=== PATIENT | female | born 1955 | race Two or more races ===

== ENCOUNTER → 2017-02-28 | Outpatient (CLI) | payer BC ==
--- NOTE | 2017-02-28 18:20 | KCIC ---
Bilateral digital screening mammograms: Reason for examination: Routine screening. Comparison is made to previous study dated 02/22/2014. The skin and nipples show no abnormalities. No abnormal axillary lymph nodes are seen. The breast parenchyma is heterogeneously dense. (Breast density: Category C.) There are small densities in the upper outer quadrants consistent with intramammary lymph nodes bilaterally. There is however a new nodular density seen posteriorly and inferiorly in the right breast on oblique view measuring approximately 7.6 mm in size. Further evaluation with additional views and ultrasound is recommended. There are no other dominant masses, suspicious calcifications or architectural distortion. Impression: 7.6 mm nodule seen posterior inferiorly in the right breast on oblique view only. Recommend further evaluation with additional views and ultrasound. Your patient's mammogram demonstrates that she has dense breast tissue (breast density category C or D), which could hide abnormalities, and if she has other risk factors for breast cancer that have been identified, she might benefit from supplemental screening tests that may be suggested by you as her ordering physician. Dense breast tissue, in and of itself, is a relatively common condition. Therefore, this information is not provided to cause undue concern, but rather to raise your awareness and to promote discussion with your patient regarding the presence of other risk factors, in addition to dense breast tissue. Your patient's mammography results will be sent to her. BI-RAD Category 0: Incomplete. Additional imaging is recommended. "Our facility is accredited by the [employer] Mammography [employer]." This patient's information has been entered into a reminder system for the patient to be notified with the results of her examination and a target date for the next mammogram. Electronically signed by: Petra Schafer MD (02/28/2017 6:16 PM) [facility]
== END | disposition home or self-care (01) ==
LOC: KCIC MAMMO 15:27
PROVIDERS: ATTEND Family Medicine
DX: Z12.31 Encounter for screening mammogram for malignant neoplasm of breast (principal)
CPT/HCPCS: G0202; 77067

== ENCOUNTER → 2017-03-09 | Outpatient (CLI) | payer BC ==
--- NOTE | 2017-03-09 17:02 | KCIC ---
Diagnostic digital mammograms right breast: Reason for examination: Nodule on screening mammogram. Comparison is made to previous examination dated 02/28/2017. Additional lateral and oblique views were obtained of the right breast with markers over moles and skin tags in the inframammary fold region and upper abdomen just beneath the inframammary fold. The nodule seen on screening examination appears to correspond with the skin tag on the upper abdominal wall. No lesions are seen within the breast parenchyma. IMPRESSION: Skin tag just beneath the inframammary fold appears corresponding with the area of mammographic concern. No suspicious abnormalities in the right breast. Recommend routine mammographic follow-up. BI-RADS Category 2: Benign. "Our facility is accredited by the [employer] Mammography [employer]." This patient's information has been entered into a reminder system for the patient to be notified with the results of her examination and a target date for the next mammogram. Electronically signed by: Petra Schafer MD (03/09/2017 4:58 PM) [facility]
== END | disposition home or self-care (01) ==
LOC: KCIC MAMMO 12:57
PROVIDERS: ATTEND Family Medicine
DX: R92.8 Other abnormal and inconclusive findings on diagnostic imaging of breast (principal)
CPT/HCPCS: G0206; 77065

== ENCOUNTER → 2018-12-21 | Outpatient (CLI) | payer BC ==
--- NOTE | 2018-12-21 10:16 | KCIC ---
BILATERAL SCREENING MAMMOGRAM, 3-D History: Routine screening. Comparison: Bilateral mammogram 02/28/2017 and dating back to 2013. Technique: MLO and CC digital tomosynthesis (3D) images obtained. Radiologist reviewed these images on dedicated workstation. Findings: Breast Tissue Density C : The breasts are heterogeneously dense, which may obscure small masses. Bilateral outer posterior intramammary lymph nodes are stable. Asymmetry on the left MLO view just inferior to the nipple line is not identified on the tomosynthesis images. There are no dominant masses, suspicious microcalcifications, or architectural distortion. IMPRESSION: No mammographic evidence of malignancy. Recommend routine screening. BI-RADS category 2: Benign findings. The images were reviewed with computer-aided detection. Patient information is entered into reminder system with a target due date for the next screening mammogram. Mammography is the most sensitive method for finding small breast cancers, but it does not detect them all and is not a substitute for careful clinical examination. A negative mammogram does not negate a clinically suspicious finding and should not result in delay in biopsying a clinically suspicious abnormality. "Our facility is accredited by the [employer] Mammography Program." Electronically signed by: Ayush Perez MD (12/21/2018 10:14 AM) [facility]
== END | disposition home or self-care (01) ==
LOC: KCIC MAMMO 08:25
PROVIDERS: ATTEND Family Medicine
DX: Z12.31 Encounter for screening mammogram for malignant neoplasm of breast (principal)
CPT/HCPCS: 77063; 77067

== ENCOUNTER → 2021-01-22 | Outpatient (CLI) | payer BC ==
--- NOTE | 2021-01-22 15:06 | KCIC ---
Bilateral diagnostic digital mammograms with 3-D tomosynthesis: Reason for examination: Stabbing left breast pain on 3 occasions. No recent pain. Comparison is made to previous studies dated back to 02/22/2014. Bilateral mammograms in CC and oblique projections were obtained with 2-D imaging and 3-D tomosynthes is imaging on a Siemens Inspiration unit and reviewed on the workstation. Interpretation was made wit h the benefit of CAD. The skin and nipples show no abnormalities. No abnormal axillary lymph nodes are seen. The breast par enchyma is heterogeneously dense. (Breast density: Category C.) There appears to be some nodular pare nchymal asymmetry superiorly in the left breast on oblique view approximately 5 cm from the nipple an d measuring approximately 1 cm in size. Further evaluation with ultrasound is recommended. There cont inue to be small nodules consistent with intramammary lymph nodes in the right breast posteriorly in the upper outer quadrant which are stable. There also appears to be some nodular parenchyma superiorl y in the right breast. There are no other new dominant masses, suspicious calcifications or technology solutions architect ural distortion. Impression: Small nodular density in the 12:00 B position of the left breast. Nodular parenchyma in the superior right breast. Recommend further evaluation with bilateral breast ultrasound. Your patient's mammogram demonstrates that she has dense breast tissue (breast density category C or D), which could hide abnormalities, and if she has other risk factors for breast cancer that have bee n identified, she might benefit from supplemental screening tests that may be suggested by you as her ordering physician. Dense breast tissue, in and of itself, is a relatively common condition. Therefo re, this information is not provided to cause undue concern, but rather to raise your awareness and t o promote discussion with your patient regarding the presence of other risk factors, in addition to d ense breast tissue. Your patient's mammography results will be sent to her. BI-RAD Category 0: Incomplete. Needs additional imaging evaluation. Electronically signed by: Petra Schafer MD (01/22/2021 3:04 PM) [id number]
--- NOTE | 2021-01-26 18:32 | KCIC ---
Bilateral breast ultrasound: Reason for examination: Nodular densities on screening mammogram. Comparison is made to mammographic exam dated 01/22/2021. Ultrasound examination was performed of the breasts and axilla bilaterally. In the right breast at 12:30 position 5 cm from the nipple, there is a 1.1 cm hypoechoic nodule with a parallel orientation and some posterior acoustic enhancement seen on antiradial projection. This li ankit represents a small fibroadenoma. No abnormal appearing lymph nodes are seen in the right axilla. In the left breast at the 3:00 C position in the area of clinical concern, no focal abnormalities gustavo dent. At the 12:00 retroareolar position, there is a 5.3 mm hypoechoic circumscribed lesion in parall el orientation which probably represents a small fibroadenoma and shows no abnormal vascularity. At t he 2:00 position 6 cm from the nipple, there is a 3.1 mm hypoechoic circumscribed lesion which may re present a complicated cyst. No suspicious lesions are seen. No abnormal appearing lymph nodes are see n in the left axilla. IMPRESSION: 1.1 cm nodule at the 12:30 position 5 cm from the nipple in the right breast which probably represent s a fibroadenoma. 5.3 mm nodule at the retroareolar 12:00 position of the left breast probably representing a fibroaden gaetano. 3.1 mm hypoechoic nodule at the 2:00 position 6 cm from the nipple in the left breast probably repres enting a complicated cyst. No abnormality in the area of clinical concern at the 3:00 C position of the left breast. Recommend reevaluation with bilateral breast ultrasound in 6 months. BI-RADS Category 3: Probably Benign. "Our facility is accredited by the [employer] Mammography Program." This patient's information has been entered into a reminder system for the patient to be notified wit h the results of her examination and a target date for the next mammogram. Electronically signed by: Petra Schafer MD (01/26/2021 6:29 PM) [email or web address]
== END ==
LOC: KCIC MAMMO 08:12
PROVIDERS: ATTEND Nurse Practitioner
DX: N63.42 Unspecified lump in left breast, subareolar (principal); N63.12 Unspecified lump in the right breast, upper inner quadrant; N63.21 Unspecified lump in the left breast, upper outer quadrant; N64.89 Other specified disorders of breast; R44.8 Other symptoms and signs involving general sensations and perceptions
CPT/HCPCS: 76641; 77066; G0279; 77062